=== PATIENT | male | born 1965 | race Caucasian/White ===

== ENCOUNTER 2016-07-12 13:13 | Emergency (ER) ==
--- NOTE | 2016-07-12 13:21 | PROVIDER DOCUMENTATION ---
HPI-Chest Pain - General Chief Complaint: Heart Alert Stated Complaint: cp Time Seen by Provider: 07/12/16 13:16 Source: patient - History of Present Illness-CP Nature of Presenting Problem: patient is a 50 y/o M that presents with 24 hours of chest pressure pain. patient denies any radiation of pain. Denies shortness of breath, n/v, or back pain. Went to his pcp and had EKG that showed ACUTE LA, Ems was called and brought him here. Patient was give ASA and 1 nitro en route. Location: reports: central Quality of Pain: reports: pressure Severity in ED: moderate Onset/Duration: abrupt, 24 hours ago Timing: still present, constant Context/Activities at Onset: reports: none Modifying Factors: improves with: nothing Associated Symptoms: denies: dizziness, fever/chills, nausea, shortness of breath, vomiting Aspirin Treatment Today: 325 mg x 1, provided by ED Prior Chest Pain/Cardiac Workup: reports: no prior chest pain Similar Symptoms Previously?: No Recently Seen Here or By Another Healthcare Provider: Yes Review of Systems - Adult - REVIEW OF SYSTEMS - ADULT Constitutional: denies: chills, fever Eyes: reports: no symptoms reported Ears, Nose, Mouth & Throat: denies: ear discharge, ear pain, sinus problem, throat pain, throat swelling Cardiovascular: reports: chest pain. denies: palpitations, syncope Respiratory: denies: cough, dyspnea on exertion Gastrointestinal: denies: abdominal pain, diarrhea, nausea, vomiting Genitourinary: reports: no symptoms reported Musculoskeletal: denies: back pain, joint pain, neck pain Integumentary: reports: no symptoms reported Neurological: reports: no symptoms reported Psychiatric: reports: no symptoms reported Endocrine: reports: no symptoms reported Hematologic/Lymphatic: reports: no symptoms reported Allergic/Immunologic: reports: no symptoms reported All Other Systems: Reviewed and Negative Past History - Adult - PAST MEDICAL HISTORY-ADULT Review of Records: reports: Old Records Reviewed, Nursing Assessment Review, Medications Reviewed Physical Exam-General - PHYSICAL EXAM-ADULT Initial Vital Signs Reviewed: Yes - CONSTITUTIONAL General Appearance: alert, mild distress - EYES Eyes: PERRL/EOMI, pink conjunctivae - HEAD, EARS, NOSE, MOUTH & THROAT HENMT: normocephalic/atraumatic, moist mucous membranes, normal ENT inspection - NECK Neck: full range of motion, normal inspection. negative: lymphadenopathy - RESPIRATORY Respiratory: lungs clear, normal breath sounds, no respiratory distress, no accessory muscle use - CARDIOVASCULAR Cardiovascular: regular rate, rhythm, no edema, no murmur - GASTROINTESTINAL (ABDOMEN) Abdominal Exam: normal bowel sounds, non tender, soft - MUSCULOSKELETAL Extremity: normal range of motion, non-tender, normal inspection, no pedal edema - SKIN Integumentary: normal color, warm/dry - NEUROLOGIC Neurologic: grossly normal, no motor/sensory deficits - PSYCHIATRIC Psych/Mental Status: normal mood/affect, normal thought content, normal thought process, oriented x 3 Progress - PLAN OF CARE/RESULTS Progress/Plan/Lab Results: plan of care-transfer to for acute LA Orders Category Date Time Status Saline Loc NOW Care 07/12/16 13:17 Active CBC WITH ELECTRONIC DIFF [HEME] Stat Lab 07/12/16 13:17 Uncollected CK PROFILE [SP CHEM] Stat Lab 07/12/16 13:17 Uncollected COMPREHENSIVE METABOLIC PANEL [CHEM] Stat Lab 07/12/16 13:17 Uncollected D-DIMER [CHEM] Stat Lab 07/12/16 13:17 Uncollected MAGNESIUM [CHEM] Stat Lab 07/12/16 13:17 Uncollected PRO B-NATRIURETIC PEPTIDE Stat Lab 07/12/16 13:17 Uncollected PROTIME WITH INR [COAG] Stat Lab 07/12/16 13:17 Uncollected PTT [COAG] Stat Lab 07/12/16 13:17 Uncollected TROPONIN T Stat Lab 07/12/16 13:17 Uncollected EKG [EKG] Stat Ther 07/12/16 13:13 Ordered - EKG 1 Time of EKG reading by physician:: 13:15 EKG Read and Signed by:: Jacque Melgoza EKG Interpretation (*Must complete 3 of following elements*): Abnormal Rate: 82 Rhythm: NSR [place]: normal QRS: normal [place] Interval: normal ST Wave: elevated (Lead I,avl, V5 st elevation) - CONSULTS/PCP/HOSPITALIST Notification #1 *Consult/PCP/Hospitalist*: Michael at [facility]( accepted for ) Time Discussed: 13:20 Reason/Comments: ACUTE LA Consult Disposition: other (Transfer) Departure - Departure Time of Disposition Order: 13:21 DIAGNOSIS: STEMI (ST elevation myocardial infarction), Chest pain in adult Disposition: [facility] 02 Certified Medical Emergency: Emergent Condition: Critical - Critical Care Note Total Time (mins): 35 Critical Care Statement: This patient required my direct personal management to treat or rule out processes, the absence of which, could potentiallly result in sudden, clinically significant life or limb threatening deterioration. Attestation - Scribe Verification/Attestation Scribe:: Issac Coffman Acting as Scribe for:: Lj Wade Scribe documention review:: This chart was documented by a scribe and accurately reflects the service the provider performed and the decisions made by the provider. - Physician/ TAMMY Attestation Patient care was provided by Advanced Practice Provider:: Yes Advanced Practice Provider:: Lj Wade Advanced Practice Provider documentation review:: The Mid-level provider documentation, treatment plan and medical decision making was reviewed by the physician who agrees with all treatment and medical decision making by the MLP. Physician Attestation - Physician Attestation I, the provider, attest to the following statement:: Lj Wade Physician documentation Attestation:: This documentation recorded by the scribe accurately reflects the service I personally performed and the decisions made by me.
[2016-07-12] MEDS ORDERED: HEPARIN IV ONE ×2 (13:22→13:25)
[2016-07-12 13:38] VITALS: BP 151/93
[2016-07-12 13:54] LABS: INR 1.03; PROTIME 10.9 Seconds (9.2-11.7); PTT 28.3 Seconds (22.0-36.0)
--- NOTE | 2016-07-12 13:54 | EKG Report ---
Test Performed on : 07/12/2016 1:15:57 PM Test Reason : cp/sob Blood Pressure : / mmHG Vent. Rate : 082 BPM Atrial Rate : 082 BPM P-R Int : 146 ms QRS Dur : 086 ms QT Int : 404 ms P-R-T Axes : 035 066 058 degrees QTc Int : 472 ms Normal sinus rhythm. Lateral infarct , possibly acute ACUTE SC / STEMI Abnormal ECG No previous ECGs available Unconfirmed Result
[2016-07-12 13:56] LABS: BASO% 0.1 % (0.0-0.8); EOS# 0.02 X1000 (0.0-0.7); EOS% 0.1 % (0.0-10.0); HEMATOCRIT 51.9 % (42.0-52.0); HEMOGLOBIN 18.6 g/dL (14.0-18.0); IMM GRAN# 0.06 X1000 (0.0-0.04); IMM GRAN% 0.3 % (0.0-0.5); LYMPH# 1.99 X1000 (1.2-3.4); LYMPH% 9.7 % (20.5-51.1); MANUAL DIFF NEEDED? NO; MCH 29.3 PG (27-31); MCHC 35.8 g/dL (33-37); MCV 81.7 FL (81-99); MONO# 2.03 X1000 (0.11-0.59); MONO% 9.9 % (1.7-9.3); MPV 10.2 FL (7.4-10.4); NEUT% 79.9 % (42.2-75.2); PLT 318 X1000 (130-400); RBC 6.35 XMIL (4.7-6.1)
[2016-07-12 14:08] LABS: AGAP 16; ALBUMIN 4.4 g/dL (3.5-5.0); ALKALINE PHOSPHATASE 118 U/L (32-122); BUN 9 mg/dL (8-22); CALCIUM 9.3 mg/dL (8.8-10.2); CHLORIDE 94 mmol/L (98-107); COSMO 272; GOT 217 U/L (10-34); GPT 62 U/L (10-44); MAGNESIUM 1.7 mg/dL (1.5-2.7); POTASSIUM 3.6 mmol/L (3.5-5.1); SODIUM 136 mmol/L (136-145); TCO2 26 mmol/L (25-35); TOTAL BILIRUBIN 1.54 mg/dL (0.20-1.00); TOTAL PROTEIN 7.4 g/dL (6.3-8.3)
[2016-07-12 14:09] LABS: CK PROFILE 1830 U/L (24-204)
[2016-07-12 14:30] LABS: CK INDEX 11.7 (0.0-2.5)
[2016-07-12] MEDS ORDERED: HEPARIN ONE (17:08)
== END 2016-07-12 13:27 | disposition short-term general hospital (02) ==
LOC: EDBD → ED 13:13
DX: I21.3 ST elevation (STEMI) myocardial infarction of unspecified site (principal); R07.89 Other chest pain; R94.31 Abnormal electrocardiogram [ECG] [EKG]
CPT/HCPCS: 80053; 82550; 82553; 83735; 83880; 84484; 85025; 85379; 85610; 85730; 93005; J1644